=== PATIENT | male | born 1975 | race Caucasian/White ===

== ENCOUNTER → 2018-07-04 10:38 | Outpatient (CLI) | payer MEDICARE, MEDICAID, SELFPAY | PROVIDERS: Family Provider Family Medicine; PCP Family Medicine; Visit Provider Registered Nurse | DX: J02.9 Acute pharyngitis, unspecified (principal) | CPT/HCPCS: 87070; 87077 ==

== ENCOUNTER 2018-07-06 06:33 | Emergency (ER) | payer MEDICARE, MEDICAID, SELFPAY ==
[2018-07-06 06:43] VITALS: BP 137/81; PULSE 79; RESP 16; O2SAT 98; BMI 30.8
[2018-07-06] MEDS: DEXAMETHASONE 10 MG/ML VIAL PO (06:50)
[2018-07-06] MEDS: GLUCAGON,HUMAN RECOMBINANT 1 MG/ML VIAL IV (07:08)
[2018-07-06 07:18] VITALS: BP 137/81; PULSE 79; RESP 16; O2SAT 98; BMI 30.8
--- NOTE | 2018-07-06 07:21 | PC.NURSE ---
PT states choked on honey bunches of oats cereal last sunday it is still stuck in throat and tongue is swollen. Pt speaking clearly in full sentances, able to manage secretions and drinking Mt. Dew upon arrival in ED.
[2018-07-06 07:37] VITALS: BP 126/81; PULSE 67; RESP 18; O2SAT 95
--- NOTE | 2018-07-06 23:23 | ED_ITS ---
HPI - URI/Sore Throat General Chief Complaint: Upper Respiratory Symptoms Stated Complaint: Tongue swelling hard to breath choked onfood Time Seen by Provider: 07/06/18 06:59 Source: patient and family Mode of arrival: ambulatory Limitations: no limitations History of Present Illness HPI Narrative: 43-year-old male, daily smoker, otherwise healthy presents with chief complaint of a throat problem which has been present for the past few days. He states he was eating some crunchy serial when he felt a piece of all min gets stuck midway down his throat. He denies any nausea or vomiting and is able to eat and drink but states he still feels that something is stuck. He has had no trouble breathing and denies any cough, chest pain or fever. He does state that today he feels like maybe his tongue is a bit swollen but denies any allergic type symptoms such as lip swelling, trouble swallowing or wheeze. He has had no rash or hives Onset (ago): day(s) Severity: mild Exacerbating factors: swallowing Related Data Previous Rx's Medication Instructions Recorded dicyclomine 20 mg tablet 20 mg PO QID #120 tab 04/04/18 omeprazole magnesium 20 mg 20 mg PO DAILY #90 cap 04/04/18 capsule,delayed release Allergies Allergy/AdvReac Type Severity Reaction Status Date / Time No Known Drug Allergies Allergy Verified 07/06/18 06:43 Review of Systems Review of Systems All systems reviewed & are unremarkable except as noted in HPI and below Constitutional Denies chills, Denies fever(s), Denies lethargy and Denies weakness Eyes Denies change in vision, Denies eye discharge, Denies irritation and Denies loss of vision ENT Ears, Nose, Mouth, and Throat: Denies change in voice, Denies neck pain and Denies sore throat Cardiovascular Denies chest pain, Denies irregular heart rhythm, Denies lightheadedness, Denies palpitations, Denies dyspnea, Denies dyspnea on exertion and Denies orthopnea Respiratory Denies cough, Denies dyspnea, Denies dyspnea on exertion and Denies wheezing Gastrointestinal Gastrointestinal: Denies abdominal pain, Denies change in bowel habits, Denies diarrhea, Denies nausea and Denies vomiting Genitourinary Denies hematuria, Denies flank pain, Denies urinary incontinence and Denies urinary urgency Musculoskeletal Denies neck pain Integumentary/Breasts Denies pruritus, Denies erythema, Denies rash and Denies wounds Neurologic Denies confusion, Denies loss of vision and Denies weakness Psychiatric Denies anxiety, Denies confusion, Denies depression, Denies homicidal ideation and Denies suicidal ideation Endocrine Denies palpitations Hematologic/Lymphatic Denies easy bruising Allergic/Immunologic Denies wheezing REPLACED BY [facility] Medical History Cervical spine disease (Chronic 2013) Herniated disc, cervical (Chronic 2013) Left cervical radiculopathy (Chronic 2013) Fracture of right heel (Resolved) Surgical History History of carpal tunnel repair (Resolved) History of vasectomy (Resolved) Status post epidural steroid injection (Resolved 08/27/13) Family History Mother Bipolar 1 disorder Father No problems noted. Social History Smoking Status: Current every day smoker alcohol intake: never substance use type: does not use and former substance user Exam Narrative Exam Narrative: GEN: AOx3 and in no obvious distress, sitting comfortably, drinking Mountain Dew. No cough no vomiting EYES: Pupils are equal, round, and reactive to light and accommodation. Extraoccular muscles are intact bilaterally. There is no subconjunctival hemorrhage or exudate. ENT: No nasal drainage or swelling. No obvious tongue, lip, or pharyngeal swelling. Airway patent. No FB noted CHEST: Lungs are clear to auscultation bilaterally and free of wheezes, rales, or rhonchi. Heart rate is regular rhythm, there are no murmurs, clicks, rubs, or gallops. There is no chest wall tenderness. ABD: Abdomen is soft and nontender. There is no guarding or rebound. Bowel sounds are normal in all 4 quadrants. There is no mass or organomegaly. EXT: Full painless ROM of all extremities with no loss of sensation or strength. SKIN: Warm, pink, and dry. No erythema or rash Initial Vital Signs Initial Vital Signs: Vital Signs Pulse Rate 79 07/06/18 06:43 Respiratory Rate 16 07/06/18 06:43 Blood Pressure 137/81 07/06/18 06:43 Pulse Oximetry 98 07/06/18 06:43 Course Orders Ordered: Discontinued Medications Dexamethasone (Decadron) 10 mg PO NOW ONE Stop: 07/06/18 06:49 Last Admin: 07/06/18 06:50 Dose: 10 mg Glucagon (Glucagen) 1 mg IV NOW ONE Stop: 07/06/18 07:08 Last Admin: 07/06/18 07:08 Dose: 1 mg Reevaluation(s) Reevaluation #1: no change after Decadron or Glucagon Consultations Consultation #1: call to Dr. Fay whom suggests waiting the weekend and for ongoing symptoms to call his office on Sunday. Discharge Plan Departure Patient Disposition: Home Clinical Impression: Esophagus, foreign body Discharge Date/Time: 07/06/18 07:37 Interventions: ED Discharge Assessment Last Done: 07/06/18 07:37 Instructions: DI for Removal of Foreign Body From Esophagus Activity Restrictions/Additional Instructions: *You have been diagnosed with [ possible esophageal foreign ] *What to do: *Take medications as directed * if you have continued symptoms on Sunday morning please contact [facility] at the number provided below. I have discussed her case with Dr. Fay and this is his recommendation *Return to ER if you should have any new, worsening or concerning symptoms Prescriptions: No Action omeprazole magnesium [Acid Network Operations Lead (omeprazole)] 20 mg capsule,delayed release (DR/EC) 20 mg PO DAILY Qty: 90 RF: 0 dicyclomine 20 mg tablet 20 mg PO QID Qty: 120 RF: 1 Referrals: Akua Salas MD [Primary Care Provider] - Oskar Fay MD [Physician] -
== END 2018-07-06 07:37 | disposition home or self-care (01) ==
PROVIDERS: Emergency Provider Emergency Medicine; Family Provider Family Medicine; PCP Family Medicine
DX: T17.208A Unspecified foreign body in pharynx causing other injury, initial encounter (principal)
CPT/HCPCS: 96374; 99282; 99284; J1100; J1610

== ENCOUNTER 2018-07-07 23:47 | Emergency (ER) | payer MEDICARE, MEDICAID, SELFPAY ==
[2018-07-08 00:13] VITALS: BP 129/81; PULSE 71; RESP 18; O2SAT 98
[2018-07-08 00:19] VITALS: PULSE 71; RESP 18; O2SAT 98; BMI 30.8
--- NOTE | 2018-07-08 00:27 | ED.URI ---
HPI - URI/Sore Throat General Chief Complaint: Upper Respiratory Symptoms Stated Complaint: FEELS LIKE SOMETHING IS CAUGHT IN THROAT Time Seen by Provider: 07/08/18 00:21 Source: patient Mode of arrival: ambulatory Limitations: no limitations History of Present Illness HPI Narrative: 43-year-old male who was seen here in the emergency department a couple days ago after he thought that he had cereal (honey bunches of [place]adi) caught in his throat. He was given Decadron and glucagon here in the emergency department. According to the note at that time general surgery was consulted it was requested that the patient wait to see if his symptoms improved over the weekend if they did not call the surgery office on Sunday. Patient ports and he went home his symptoms did improve. He has been able to eat and drink without any problems without any vomiting. He states that as today he felt like that the pain that he was having the right side of his throat is now higher any feels a lump. Related Data Previous Rx's Medication Instructions Recorded dicyclomine 20 mg tablet 20 mg PO QID #120 tab 04/04/18 omeprazole magnesium 20 mg 20 mg PO DAILY #90 cap 04/04/18 capsule,delayed release Allergies Allergy/AdvReac Type Severity Reaction Status Date / Time No Known Drug Allergies Allergy Verified 07/06/18 06:43 Review of Systems Constitutional Denies fever(s) and Denies headache(s) ENT Ears, Nose, Mouth, and Throat: Denies dysphagia, Denies vertigo, Denies dizziness, Denies ear discharge, Denies facial pain, Denies headache(s), Reports neck mass, Denies disequilibrium, Denies post nasal drip, Reports sore throat and Reports throat swelling Cardiovascular Denies dyspnea Respiratory Denies dyspnea Gastrointestinal Gastrointestinal: Denies dysphagia Integumentary/Breasts Denies rash Neurologic Denies vertigo, Denies dizziness, Denies headache(s) and Denies disequilibrium Hematologic/Lymphatic Denies easy bleeding and Denies easy bruising Allergic/Immunologic Reports throat swelling [facility] Social History Smoking Status: Current every day smoker alcohol intake: never substance use type: does not use and former substance user Exam Initial Vital Signs Initial Vital Signs: Vital Signs Pulse Rate 71 07/08/18 00:13 Respiratory Rate 18 07/08/18 00:13 Blood Pressure 129/81 07/08/18 00:13 Pulse Oximetry 98 07/08/18 00:13 Const General: cooperative, healthy appearing, comfortable, well developed, well groomed and No acute distress Orientation: alert, awake and oriented x3 HENMT Head: normal to inspection, normocephalic and atraumatic Mouth: oral mucosae normal Neck Lymphatic: lymphadenopathy (One right-sided submandibular 2 cm well-defined tender lymph node that is the source of his discomfort) Resp Effort & Inspection: normal respiratory effort Auscultation: clear to auscultation bilaterally Cardio Rate: regular rate Rhythm: regular rhythm Skin Lesions: no lesions Rashes: no rashes Neuro General: alert, awake and oriented x3 Extrem General: normal to inspection and capillary refill normal Psych Appearance: grossly normal and well kempt Course Orders Ordered: Discontinued Medications Dexamethasone (Decadron) 10 mg PO NOW ONE Stop: 07/08/18 00:52 Last Admin: 07/08/18 01:32 Dose: 10 mg Vital Signs - 8 hr 07/08/18 00:13 07/08/18 00:19 07/08/18 01:57 Temperature 97.9 F Pulse Rate 71 71 63 Respiratory Rate 18 18 18 Blood Pressure [Left Arm] 129/81 130/84 Pulse Oximetry 98 98 98 MDM - URI/Sore Throat MDM Narrative Medical decision making narrative: Patient not in any respiratory distress. Has been tolerating both fluids and food over the past couple days. The area on the right side of his neck is more consistent with a lymph node not a food bolus. Informed him that food boluses do not move upwards especially after you have improvement of your symptoms. Also informed him that he normally cannot palpate food boluses from the skin. Also informed him that the type of cereal he was eating if there was a bolus of fluid by now it would have dissolve secondary to saliva another food and drink that he has been eating. It seems that he improved approximately 2-4 hours after he received Decadron in the emergency department during his last visit and his symptoms have returned approximately 36 hr after this medication was administered. I suspect that the Decadron improved his symptoms. He was given another dose here in the ER. Informed him that he could still call the surgery Department tomorrow for follow-up if he felt like he needed to however I do feel like this is lymphadenopathy. Discussed return precautions with the patient. He expressed understanding and agreement. Discharge Plan Departure Patient Disposition: Home Clinical Impression: Pharyngitis Discharge Date/Time: 07/08/18 02:06 Interventions: ED Discharge Assessment Last Done: 07/08/18 02:06 Instructions: Sore Throat Activity Restrictions/Additional Instructions: I do recommend that you increase your fluid intake. I also recommend that you contact the surgeon office tomorrow like previously planned. Return to the emergency department for any new symptoms Prescriptions: No Action omeprazole magnesium [Acid Skin Peeling Machine Operator (omeprazole)] 20 mg capsule,delayed release(DR/EC) 20 mg PO DAILY Qty: 90 RF: 0 dicyclomine 20 mg tablet 20 mg PO QID Qty: 120 RF: 1
[2018-07-08] MEDS: DEXAMETHASONE 10 MG/ML VIAL PO (01:32)
[2018-07-08 01:57] VITALS: BP 130/84; PULSE 63; RESP 18; TEMP 36.6; O2SAT 98
== END 2018-07-08 02:06 | disposition home or self-care (01) ==
PROVIDERS: Emergency Provider Emergency Medicine; Family Provider Family Medicine; PCP Family Medicine
DX: J02.9 Acute pharyngitis, unspecified (principal)
CPT/HCPCS: 99282; 99283; J1100

== ENCOUNTER → 2018-10-04 10:32 | Outpatient (CLI) | payer MEDICARE, MEDICAID, SELFPAY ==
[2018-10-04 11:36] LABS: Add Manual Diff / Slide Review NO; Basophils Absolute Auto 0 /uL (0-100); Basophils Percent Auto 0.7 % (0-2); Eosinophils Absolute Auto 100 /uL (0-450); Eosinophils Percent Auto 2.1 % (2-4); Hematocrit 45.7 % (41-53); Hemoglobin 15.4 g/dL (13.5-17.5); Lymphocytes Absolute Auto 1700 /uL (1100-4500); Lymphocytes Percent Auto 32.2 % (25-40); Mean Corpuscular HGB Conc 33.7 % (30-36); Mean Corpuscular Hemoglobin 30.3 PG (26-34); Mean Corpuscular Volume 89.7 fL (80-100); Monocytes Absolute Auto 500 /uL (0-900); Monocytes Percent Auto 9.9 % (3-14); Neutrophils Absolute Auto 2900 /uL (1500-7000); Neutrophils Percent Auto 55.1 % (50-75); Platelet Count 266 X10^3/uL (150-400); Red Blood Cell Count 5.09 X10^6/uL (4.5-5.9); Red Cell Distribution Width 13.3 % (11.6-14.8); White Blood Cell Count 5.4 X10^3/uL (4.5-11.0)
[2018-10-04 12:10] LABS: Alanine Aminotransferase 47 IU/L (21-72); Albumin 4.6 g/dL (3.5-5.0); Albumin Globulin Ratio 1.4 (1.0-2.8); Alkaline Phosphatase 78 U/L (38-126); Aspartate Aminotransferase 27 IU/L (17-59); BUN Creatinine Ratio 15.6 (6-22); Bilirubin Total 0.2 mg/dL (0.2-1.3); Blood Urea Nitrogen 14 mg/dL (9-20); Calcium 9.1 mg/dL (8.4-10.2); Carbon Dioxide 29 mmol/L (22-32); Chloride 105 mmol/L (98-107); Cholesterol 181 mg/dL (140-199); Estimated Glomerular Filt Rate > 60.0 mL/min (>60); Globulin 3.2 g/dL (1.7-4.1); Glucose 76 mg/dL (70-100); HDL Cholesterol 32 mg/dL (40-60); HEMOLYSIS < 15 (0-50); LDL Cholesterol Calculated 93 mg/dL (<100); Potassium 4.4 mmol/L (3.4-5.1); Sodium 141 mmol/L (137-145); Total Protein 7.8 g/dL (6.3-8.2); Triglycerides 280 mg/dL (35-150)
== END ==
PROVIDERS: PCP Nurse Practitioner; Visit Provider Nurse Practitioner
DX: F32.9 Major depressive disorder, single episode, unspecified (principal); F41.9 Anxiety disorder, unspecified; K92.1 Melena
CPT/HCPCS: 36415; 80053; 80061; 84443; 85025

== ENCOUNTER 2019-06-26 15:37 | Emergency (ER) | payer MEDICARE, SELFPAY ==
[2019-06-26 15:58] VITALS: BP 127/77; PULSE 70; RESP 16; TEMP 36.6; O2SAT 99; BMI 31.4
--- NOTE | 2019-06-26 16:39 | PC.NURSE ---
Pt felt a pop left side of head on Sunday. pt intermittely having increased left sided head pain since with blurry vision when the pain is there. Pt is also intermittently dizzy with the pain. Pt states that the pain is worse with any exertion.
--- NOTE | 2019-06-26 17:42 | DI.CT.S_ITS ---
PROCEDURE: CT HEAD/BRAIN WO CON INDICATIONS: severe MAHARAJ 5 days TECHNIQUE: Noncontrast 4.5 mm thick angled axial sections acquired from the foramen magnum to the vertex, with coronal and sagittal reformats. For radiation dose reduction, the following was used: automated exposure control, adjustment of mA and/or kV according to patient size. COMPARISON: None. FINDINGS: Image quality: Excellent. CSF spaces: Basal cisterns are patent. No extra-axial fluid collections. Ventricles are normal in size and shape. Brain: No midline shift. No intracranial masses or hemorrhage. Alvarez-white matter interface is normal. Skull and face: Calvarium and visualized facial bones are intact, without suspicious lesions. Sinuses: Visualized sinuses and mastoids are clear. IMPRESSION: No acute intracranial abnormalities. Dictated by: Amadou Jimenez M.D. on 06/26/2019 at 18:40 Approved by: Amadou Jimenez M.D. on 06/26/2019 at 18:41
[2019-06-26 18:07] VITALS: BP 118/77; PULSE 62; RESP 17; O2SAT 97
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
[2019-06-26] MEDS: KETOROLAC 60 MG/2 ML VIAL 30 MG IV (19:39)
[2019-06-26] MEDS: METOCLOPRAMIDE 10 MG/2 ML INJ IV (19:39)
[2019-06-26] MEDS: SODIUM CHLORIDE 0.9% 1,000 ML 1000 ML IV (19:39)
[2019-06-26] MEDS: diphenhydrAMINE 50 MG/ML VIAL 25 MG IV (19:39)
[2019-06-26 20:18] VITALS: BP 113/83; PULSE 46; RESP 14; O2SAT 99
--- NOTE | 2019-06-27 19:02 | PC.NURSE ---
pt discharged at 2045, bolus of 1000ml saline fully infused and d/c'd with no waste
== END 2019-06-26 20:47 | disposition home or self-care (01) ==
PROVIDERS: Emergency Provider Nurse Practitioner Family; PCP Nurse Practitioner
DX: R51 Headache (principal)
CPT/HCPCS: 70450; 96361; 96374; 96375; 99284; J1200; J1885; J2765

== ENCOUNTER 2021-02-20 00:55 | Emergency (ER) | payer MEDICARE, SELFPAY ==
[2021-02-20 00:55] VITALS: BP 153/78; PULSE 72; RESP 18; TEMP 36.5; O2SAT 98; BMI 33.5
--- NOTE | 2021-02-20 01:09 | DI.RAD.S_ITS ---
PROCEDURE: XR ANKLE LT MIN 3V INDICATIONS: left ankle swelling TECHNIQUE: 3 views of the ankle were acquired. COMPARISON: None. FINDINGS: Bones: No fractures or dislocations. Ankle mortise is normally aligned. No suspicious bony lesions. The talar dome demonstrates no matthew abnormality. Plantar and Achilles calcaneal spurs are seen. Soft tissues: There is mild medial soft tissue swelling seen. IMPRESSION: Negative for fracture. Mild medial soft tissue swelling can be seen. Plantar and Achilles calcaneal spurs are seen. Note: No significant discrepancy from the preliminary report. Dictated by: Herbert Fonseca M.D. on 02/20/2021 at 8:02 Approved by: Herbert Fonseca M.D. on 02/20/2021 at 8:02
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
[2021-02-20 01:52] VITALS: BP 153/78; PULSE 72; RESP 16; O2SAT 99
== END 2021-02-20 01:52 | disposition home or self-care (01) ==
PROVIDERS: Emergency Provider Emergency Medicine; PCP Nurse Practitioner
DX: S93.492A Sprain of other ligament of left ankle, initial encounter (principal); V29.9XXA Motorcycle rider (driver) (passenger) injured in unspecified traffic accident, initial encounter
CPT/HCPCS: 73610; 99283

== ENCOUNTER 2021-03-07 15:16 | Emergency (ER) | payer MEDICARE, SELFPAY ==
[2021-03-07 15:17] VITALS: BP 125/80; PULSE 85; RESP 22; TEMP 36.4; O2SAT 99
== END 2021-03-07 16:08 | disposition left against medical advice (07) ==
PROVIDERS: Emergency Provider Emergency Medicine; PCP Nurse Practitioner
CPT/HCPCS: 99281

== ENCOUNTER 2021-03-07 22:09 | Emergency (ER) | payer MEDICARE, SELFPAY ==
[2021-03-07 22:11] VITALS: BP 112/78; PULSE 96; RESP 20; O2SAT 98
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
[2021-03-08] MEDS: TET,DIPH,PERTUSS(ACELL),VAC/PF 0.5 ML SYRINGE IM (00:02)
[2021-03-08] MEDS: DOXYCYCLINE HYCLATE 100 MG TABLET PO (00:03)
[2021-03-08 00:04] VITALS: BP 117/75; PULSE 62; RESP 16; O2SAT 96
== END 2021-03-08 00:06 | disposition home or self-care (01) ==
PROVIDERS: Emergency Provider Emergency Medicine; PCP Nurse Practitioner
DX: L03.115 Cellulitis of right lower limb (principal); Z23 Encounter for immunization
CPT/HCPCS: 90471; 99281; 99283; 90715

== ENCOUNTER 2021-10-19 13:25 | Emergency (ER) | payer OTHER, SELFPAY ==
[2021-10-19 13:32] VITALS: BP 124/82; PULSE 56; RESP 18; TEMP 36.6; O2SAT 99; BMI 32.8
[2021-10-19] MEDS: ACETAMINOPHEN 325 MG TABLET 975 MG PO (15:07)
[2021-10-19] MEDS: KETOROLAC 30 MG/ML VIAL 15 MG IM (15:08)
[2021-10-19] MEDS: ONDANSETRON 4 MG ODT SL (15:08)
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
== END 2021-10-19 15:30 | disposition home or self-care (01) ==
PROVIDERS: Emergency Provider Nurse Practitioner Critical Care Medicine; PCP Nurse Practitioner
DX: S06.0X0A Concussion without loss of consciousness, initial encounter (principal); S00.11XA Contusion of right eyelid and periocular area, initial encounter; W20.8XXA Other cause of strike by thrown, projected or falling object, initial encounter
CPT/HCPCS: 96372; 99283; J1885